=== PATIENT | male | born 1960 | race Caucasian/White ===

== ENCOUNTER 2016-08-19 22:48 | Emergency (ER) | payer OTHER ==
[2016-08-19 23:23] LABS: BASOPHIL % 0.9 % (0-2); RED CELL DISTRIBUTION WIDTH 14.3 % (11.5-14.5)
[2016-08-19 23:27] LABS: PLATELET COUNT 93 x10^3mcL (130-400)
[2016-08-19 23:36] LABS: CARBON DIOXIDE 27.4 mmol/L (21-32); CHLORIDE SERUM 103 mmol/L (98-107); CREATININE SERUM 1.1 mg/dL (0.7-1.3); GFR1 > 60 mL/min; GLUCOSE SERUM 113 mg/dL (74-106); POTASSIUM SERUM 3.7 mmol/L (3.5-5.1); SODIUM SERUM 137 mmol/L (136-145)
[2016-08-19 23:42] LABS: ALBUMIN 3.6 g/dL (3.4-5.0); ALKALINE PHOSPHATASE 118 U/L (46-116); ALT/SGPT 70 U/L (16-63); AMYLASE 103 U/L (25-115); AST/SGOT 77 U/L (15-37); BILIRUBIN TOTAL 1.1 mg/dL (0.20-1.00); LIPASE 304 IU/L (73-393); TOTAL PROTEIN, SERUM 7.9 g/dL (6.4-8.2)
[2016-08-20 01:11] LABS: UA SPECIFIC GRAVITY >=1.030 (1.005-1.035); microscopic required? YES; urine erythrocyte 3+ (NEGATIVE)
[2016-08-20 03:39] VITALS: BP 122/68
== END 2016-08-20 03:39 | disposition home or self-care (01) ==
LOC: ED 22:48
PROVIDERS: Emergency Medicine
DX: N20.0 Calculus of kidney (principal); K74.60 Unspecified cirrhosis of liver
CPT/HCPCS: 36415; J1170; J1885; Q0162

== ENCOUNTER 2018-11-14 17:47 | Emergency (ER) | payer BC ==
[~2018-11-14] VITALS: Ht 170.2 cm; Wt 132.9 kg
[2018-11-14 17:59] VITALS: Ht 170.2 cm; Wt 132.9 kg
[2018-11-14 18:38] LABS: BASOPHIL % 0.6 % (0-2)
[2018-11-14 18:39] LABS: PLATELET COUNT 90 x10^3mcL (130-400); RED CELL DISTRIBUTION WIDTH 14.6 % (11.5-14.5)
[2018-11-14 18:45] LABS: CALCIUM 8.9 mg/dL (8.5-10.1); CARBON DIOXIDE 26.7 mmol/L (21-32); CHLORIDE SERUM 108 mmol/L (98-107); CREATININE SERUM 1.1 mg/dL (0.7-1.3); GFR1 > 60 mL/min; GLUCOSE SERUM 116 mg/dL (74-106); POTASSIUM SERUM 4.2 mmol/L (3.5-5.1); SODIUM SERUM 144 mmol/L (136-145)
[2018-11-14 18:46] LABS: LIPASE 118 IU/L (73-393)
[2018-11-14 20:39] VITALS: BP 131/63
== END 2018-11-14 20:39 | disposition home or self-care (01) ==
LOC: ED 17:47
PROVIDERS: Emergency Medicine
DX: N20.1 Calculus of ureter (principal); Z86.19 Personal history of other infectious and parasitic diseases
CPT/HCPCS: 36415; J1885; Q0092